=== PATIENT | male | born 1985 | race Caucasian/White ===

== ENCOUNTER 2025-02-27 13:00 | Emergency (ER) | payer MEDICARE, OTHER ==
[~2025-02-27] VITALS: Ht 195.6 cm; Wt 127.3 kg
[~2025-02-27 13:00] MED LIST: DOL10T PO; HYDR-3972 PO
--- NOTE | 2025-02-27 13:06 | Physician Documentation ---
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 Around 1200 today he grabbed his left arm, with his right hand, in order to move it when he noticed the left upper extremity was very warm and swollen. Normally the left upper extremity is much colder than the right. Approximately half an hour later he noticed purple discoloration of the skin of the left hand. His left upper extremity also feels heavy with some slight pain of the extremity. Finally he notes a small sore over the dorsal aspect of the hand below the thumb that appeared today. He denies history of similar symptoms. Medication Reconciliation Allergies: Coded Allergies: No Known Allergies (Unverified , 04/26/12) Scheduled Cephalexin*Monohydrate* (Keflex*), 2 CAP PO BID Hydrocodone Bit/Acetaminophen (Hydrocodon-Acetaminophn 10-325 tablet), 2 TAB PO 5XD, (Reported) Methadone Hcl (Dolophine), 40 MG PO QID, (Reported) Sulfamethoxazole/Trimethoprim (Septra Ds Tab), 1 TAB PO BID Past Medical History Past Medical History: *MUSCULOSKELETAL*, Chronic Pain Past Surgical History: orthopedic surgeries, other Smoking: Quit greater than 1 year Alcohol Use: None Drug Use: none Lives with: Family Lives In: Home Review of Systems All Other Systems at this time: Reviewed and Negative ROS Left hand swelling as well as other positive symptoms as stated above in the HPI, otherwise all systems are reviewed and negative. Physical Exam Physical Exam Vital Signs: RN Vital Signs have been reviewed: Yes Pulse Oximetry Reflects: adequate oxygenation Physical Exam VITALS: Reviewed and as above. GENERAL: Alert, no apparent distress. HEENT: Normocephalic, atraumatic, PERRL, EOMI, dry mucosa RESPIRATORY: Lungs clear, normal breath sounds, no respiratory distress. CHEST: No accessory muscle use, no retractions CV: Regular rate, rhythm, no murmur, No: JVD EXTREMITIES: LUE: Extremity is flaccid with fingers flexed. 1cm area of erythema with excoriation dorsally and proximal to the 1st MCP joint. Diffuse 1+ edema and erythema of the hand extending up to the elbow. Warmth and echymosis of the thumb and proximal 2nd and 3rd finger. Bounding radial pulse. Slightly delayed capillary refill at 3-4s. Other 3 extremities: No deformities, no edema SKIN: See Above. Warm and dry, no rash NEURO: Oriented x4, No motor or sensory deficit PSYCH: Normal mood and affect, no agitation Progress Results/Orders Reviewed/noted all lab results: Yes Results/Orders Orders - WVLLOUIE BECERRIL MD Vl Arterial (02/27/25 13:18) Vl Venous (02/27/25 13:18) Hand,Limited (Ap/Lat) (02/27/25 ) Completed Orders - LOUIE RODRIGES MD Cbc/Diff (02/27/25 13:18) Procalcitonin (02/27/25 13:18) Piperacillin/Tazo 3.375gm/50ml (Zosyn 3. (02/27/25 13:20) BMP (02/27/25 13:18) Vl Arterial (02/27/25 13:18) Vl Venous (02/27/25 13:18) Hand,Limited (Ap/Lat) (02/27/25 ) Vital Signs 02/27/25 02/27/25 02/27/25 02/27/25 13:07 14:08 14:08 15:21 Temp 97.7 98.6 Pulse 77 65 78 Resp 16 16 14 16 B/P (MAP) 145/92 148/94 (112) 128/78 Pulse Ox 98 96 99 O2 Flow Rate 0 Laboratory Tests Test 02/27/25 13:39 White Blood Count 6.2 Red Blood Count 5.19 Hemoglobin 15.4 Hematocrit 44.3 Mean Corpuscular Volume 85.5 Mean Corpuscular Hemoglobin 29.6 Mean Corpuscular Hemoglobin Concent 34.6 Red Cell Distribution Width 13.4 Platelet Count 207 Mean Platelet Volume 7.9 Neutrophils (%) (Auto) 64.4 Lymphocytes (%) (Auto) 27.4 Monocytes (%) (Auto) 6.5 Eosinophils (%) (Auto) 1.1 Basophils (%) (Auto) 0.6 Neutrophils # (Auto) 4.0 Lymphocytes # (Auto) 1.7 Monocytes # (Auto) 0.4 Eosinophils # (Auto) 0.1 Basophils # (Auto) 0.0 CBC Comment Sodium Level 144 Potassium Level 4.1 Chloride Level 108 H Carbon Dioxide Level 28.7 Anion Gap 7 L Blood Urea Nitrogen 12 Creatinine 0.80 Estimated GFR/1.73 m2 > 90 BUN/Creatinine Ratio 15.0 Glucose Level 109 H Calcium Level 9.0 Albumin 3.9 Procalcitonin < 0.05 Chemistry Comments EKG/XRAY/CT/US/VASC/MRI Bone/Soft Tissue X-Ray (Ext.) : Additional Comment EXAM: DI HAND,LIMITED (AP/LAT) CLINICAL INDICATION: swelling TECHNIQUE: DI HAND,LIMITED (AP/LAT) Comparison: None FINDINGS/IMPRESSION: There is no evidence of acute fracture or dislocation. Diffuse osteopenia. Diffuse soft tissue swelling. 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 The alignment is anatomical. There is no radiopaque foreign body. Reviewed by myself. Vascular #1: Vascular Study: upper extremity venous Impression VASC VL VENOUS HISTORY: left hand swelling COMPARISON: None TECHNIQUE: Duplex doppler evaluation of the deep venous system of the lower neck and proximal upper extremity(ies), including color doppler and spectral/pulsed waveform analysis was performed. FINDINGS: Left: - Internal jugular vein: Compressible - Subclavian vein: Visible portion is patent - Axillary vein: Visible portion is patent - Brachial vein: Compressible - Cephalic vein: Compressible - Basilic vein: Compressible - Ulnar vein: Compressible - Radial vein: Compressible - Other: Nothing IMPRESSION: No left upper extremity deep venous thrombosis. Reviewed by myself. Vascular #2: Vascular Study: upper extremity arterial Impression CONCLUSION Technologist Preliminary Impression: Sandee Moise RDMS/RVT Multiphasic throughout left arm, hyperemic flow noted in Left Radial Artery and Left Brachial Distal artery. 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 The vascular studies ordered including arterial as well as venous did not demonstrate any significant pathology he has bounding pulses he was given antibiotics here in the emergency department the patient has been advised to return if he develops significant worsening he will be continued on antibiotics. The patient's pulse oximetry was interpreted as normal and adequate prior hospitalizations have been reviewed and all imaging was reviewed. Departure Time of Disposition: 15:12 Disposition: HOME / SELF CARE / HOMELESS Impression: Primary Impression: Cellulitis Qualified Codes: L03.114 - Cellulitis of left upper limb Additional Impression: Bug bite Qualified Codes: W57.XXXA - Bitten or stung by nonvenomous insect and other nonvenomous arthropods, initial encounter Condition: Stable Discharge Instructions: Cellulitis, Adult, [id number] Additional Instructions: Take full course of both antibiotics as prescribed. Follow up with the regular doctor. Return to the ER for worsening swelling, worsening redness, or any other concerns. Prescriptions Sulfamethoxazole/Trimethoprim (Septra Ds Tab) 800 Mg/160 Mg Tablet 1 TAB PO BID, #14 TAB Prov: LOUIE RODRIGES MD 02/27/25 Cephalexin*Monohydrate* (Keflex*) 500 Mg Capsule 2 CAP PO BID, #28 CAP Prov: LOUIE RODRIGES MD 02/27/25 Education Educated: Patient Educated regarding: diagnosis, treatment, need for follow up Signature Scribe Signature: Scribed for Louie Rodriges MD by Matt Chavez . 02/27/25 13:22 Attestation: The note accurately reflects work and decisions made by me.Louie Rodriges MD 02/28/25 19:13 LOUIE RODRIGES MD Feb 27, 2025 13:06 MATT PABLO Feb 27, 2025 13:27
[2025-02-27 13:47] LABS: MEAN PLATELET VOLUME 7.9 FL (7.4-10.4); RED CELL DISTRIBUTION WIDTH 13.4 % (11.5-14.5)
[2025-02-27] MEDS: piperacillin/tazo 3.375gm/50ml 50 ML IV ONE (13:51)
[2025-02-27 13:58] LABS: CREATININE 0.80 MG/DL (0.60-1.10); TOTAL CARBON DIOXIDE 28.7 MMOL/L (24-32); eCRCL 156 ML/MIN; eGFR > 90 ML/MIN
--- NOTE | 2025-02-27 13:58 | RADIOLOGY REPORT ---
EXAM: DI HAND,LIMITED (AP/LAT) CLINICAL INDICATION: swelling TECHNIQUE: DI HAND,LIMITED (AP/LAT) Comparison: None FINDINGS/IMPRESSION: There is no evidence of acute fracture or dislocation. Diffuse osteopenia. Diffuse soft tissue swelling. 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 The alignment is anatomical. There is no radiopaque foreign body.
[2025-02-27] MEDS ORDERED: SULF1TAB45 PO (15:11)
[2025-02-27] MEDS ORDERED: CEPH-585 PO (15:11)
[2025-02-27 15:21] VITALS: BP 128/78; PULSE 78; RESP 16; TEMP 98.6; O2SAT 99
--- NOTE | 2025-02-27 15:22 | VASCULAR REPORT ---
VASC VL VENOUS HISTORY: left hand swelling COMPARISON: None TECHNIQUE: Duplex doppler evaluation of the deep venous system of the lower neck and proximal upper extremity(ies), including color doppler and spectral/pulsed waveform analysis was performed. FINDINGS: Left: - Internal jugular vein: Compressible - Subclavian vein: Visible portion is patent - Axillary vein: Visible portion is patent - Brachial vein: Compressible - Cephalic vein: Compressible - Basilic vein: Compressible - Ulnar vein: Compressible - Radial vein: Compressible - Other: Nothing IMPRESSION: No left upper extremity deep venous thrombosis.
--- NOTE | 2025-02-27 15:33 | VASCULAR REPORT ---
[facility] Vascular Department [address] [address] [email or web address] Name : DENY GRANT Date : 02/27/2025 FESTING Accession# : [id number] Birthdate : 1985 Sex : M Wheat Inspector : Sandee Moise RDMS/RVNancy Age : [address] : LOUIE BROWN, Preliminary Report The above named patient was referred for a NON-INVASIVE UPPER EXTREMITY ARTERIAL EXAMINATION. The evaluation includes grayscale imaging, color flow Doppler and spectral analysis of the upper extremity arteries. Patient ER Ina[employer]ations Left hand swelling Waveforms Right Left Prox Godfrey Distal Prox Mid Distal Subcl. Subcl. Multi-phasic Multi-phasic Multi-phasic Axillary Axillary Multi-phasic Brachial Brachial Multi-phasic Multi-phasic Multi-phasic Radial Radial Multi-phasic Ulnar Ulnar Multi-phasic Velocities Right Left Prox Godfrey Distal Prox Mid Distal Subcl. Subcl. 142.0cm/s 149.0cm/s 126.0cm/s Axillary Axillary 109.0cm/s Brachial Brachial 104.0cm/s 88.0cm/s 145.0cm/s Radial Radial 189.0cm/s Ulnar Ulnar 44.0cm/s CONCLUSION Technologist Preliminary Impression: Sandee Moise RDMS/BRYANNA Multiphasic throughout left arm, hyperemic flow noted in Left Radial Artery and Left Brachial Distal artery. No sonographic evidence of stenosis or occlusion
== END 2025-02-27 15:23 | disposition home or self-care (01) ==
LOC: ER 13:01
DX: L03.114 Cellulitis of left upper limb (principal); W57.XXXA Bitten or stung by nonvenomous insect and other nonvenomous arthropods, initial encounter; Y93.89 Activity, other specified; Y92.89 Other specified places as the place of occurrence of the external cause; Y99.8 Other external cause status
CPT/HCPCS: 36415; 73120; 80048; 84145; 85025; 93931; 93971; 96365; 99285; J2543

== ENCOUNTER 2025-03-04 17:10 | Inpatient (IN) | payer OTHER ==
[~2025-03-04] VITALS: Ht 195.6 cm; Wt 121.6 kg
[~2025-03-04 17:10] MED LIST changes: +CEPH-585 PO; +SULF1TAB45 PO
[2025-03-04] MEDS: CefTRIAXone/D5W-Rocephin 1gm 50 ML IV ONE (21:25)
--- NOTE | 2025-03-04 21:25 | Physician Documentation ---
History of Present Illness General Chief Complaint: Wound Re-Check Stated Complaint: LEFT HAND INFECTION Time Seen by MD: 21:10 Primary Medical Doctor: DOREEN History of Present Illness Initial Comments 40-year-old male re presents to the emergency department status post bug bite 2- 3 days ago where he was seen in the ED and received a single dose of IV antibiotic and discharged on Bactrim and Keflex. Since being discharged he has noted increasing warmth and erythema with some discoloration to the distal left upper extremity. 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 Continues to have excellent cap refill. There was no obvious abscess or open wound. Patient is on chronic pain medication. Medication Reconciliation Allergies: Coded Allergies: No Known Allergies (Unverified , 04/26/12) Scheduled Buprenorphine HCl/Naloxone HCl (Buprenorphine-Nalox 8-2Mg Film), 0.5 STRIP SL Q6H, (Reported) Scheduled PRN Tramadol HCl (Tramadol HCl), 1 TAB PO Q12H PRN PRN for pain, (Reported) Discontinued Medications Buprenorphine Hcl (Buprenorphine Hcl), 1 TAB SL TID, (Reported) Discontinued Reason: wrong med Cephalexin*Monohydrate* (Keflex*), 2 CAP PO BID Discontinued Reason: patient no longer taking Hydrocodone Bit/Acetaminophen (Hydrocodon-Acetaminophn 10-325 tablet), 2 TAB PO 5XD, (Reported) Discontinued Reason: patient no longer taking Methadone Hcl (Dolophine), 40 MG PO QID, (Reported) Discontinued Reason: patient no longer taking Sulfamethoxazole/Trimethoprim (Septra Ds Tab), 1 TAB PO BID Discontinued Reason: patient no longer taking Past Medical History Past Medical History: *MUSCULOSKELETAL*, Chronic Pain Past Surgical History: orthopedic surgeries, other Smoking: Quit greater than 1 year Alcohol Use: None Drug Use: none Lives with: Family Lives In: Home Review of Systems All Other Systems at this time: Reviewed and Negative Constitutional: Denies: fever, chills, weakness Musc: Reports: swelling Musculoskeletal Mild erythema, increased tenderness and discoloration to the dorsum of the left hand. Excellent cap refill. Physical Exam Physical Exam Vital Signs: Temperature: 97.9, Source: Temporal, Heart Rate: 78, Respiratory Rate: 16, BP: 134/85, Pulse Oximetry: 98, Weight: 121.600 Oxygen Flow Rate: 0 Progress Results/Orders Results/Orders Orders - MARY CLEMENS PAC Hand, Complete (3vw Min) (03/04/25 21:10) Page Hospitalist (03/04/25 22:37) Fill Out Med Reconciliation (03/04/25 22:37) Us Soft Tissue Mass (03/05/25 ) Completed Orders - MARY CLEMENS PAC Cbc/Diff (03/04/25 21:10) CMP (03/04/25 21:10) C-Reactive Protein (03/04/25 21:10) Procalcitonin (03/04/25 21:10) Hand, Complete (3vw Min) (03/04/25 21:10) Ceftriaxone/[id number] 1gm (Rocephin 1 (03/04/25 21:25) Vancomycin*Pharmacy To Dose* (Vancomycin (03/04/25 22:40) Vancomycin 2gm/400ml H20 (Peg) (Vancomyc (03/04/25 23:00) Vancomycin 1gm 200ml H20 (Peg) (Vancomyc (03/05/25 08:00) Hgb A1c (03/04/25 21:21) Vital Signs 03/04/25 03/04/25 03/04/25 17:15 21:00 22:48 Temp 97.9 97.9 Pulse 78 78 Resp 19 16 16 B/P (MAP) 123/103 134/85 (101) Pulse Ox 97 98 O2 Flow Rate 0 0 Laboratory Tests Test 03/04/25 21:21 White Blood Count 6.9 Red Blood Count 5.20 Hemoglobin 15.5 Hematocrit 44.8 Mean Corpuscular Volume 86.1 Mean Corpuscular Hemoglobin 29.9 Mean Corpuscular Hemoglobin Concent 34.7 Red Cell Distribution Width 13.5 Platelet Count 208 Mean Platelet Volume 7.6 Neutrophils (%) (Auto) 59.3 Lymphocytes (%) (Auto) 31.2 Monocytes (%) (Auto) 7.4 Eosinophils (%) (Auto) 1.7 Basophils (%) (Auto) 0.4 Neutrophils # (Auto) 4.1 Lymphocytes # (Auto) 2.1 Monocytes # (Auto) 0.5 Eosinophils # (Auto) 0.1 Basophils # (Auto) 0.0 CBC Comment Sodium Level 143 Potassium Level 4.1 Chloride Level 106 Carbon Dioxide Level 29.0 Anion Gap 8 Blood Urea Nitrogen 18 Creatinine 0.93 Estimated GFR/1.73 m2 90 BUN/Creatinine Ratio 19.4 Glucose Level 109 H Hemoglobin A1c 5.1 Calcium Level 8.9 Total Bilirubin 1.0 Aspartate Amino Transf (AST/SGOT) 11 Alanine Aminotransferase (ALT/SGPT) 26 Alkaline Phosphatase 74 C-Reactive Protein 0.44 Total Protein 8.0 Albumin 4.2 Globulin 3.8 Albumin/Globulin Ratio 1.1 Procalcitonin < 0.05 Chemistry Comments Medical Decision Making Differential Diagnosis Decision time to Admit was upon triage evaluation for failure of out pt ABX with hand cellulitis. Laboratory workup reassuring, x-ray imaging reassuring for no obvious soft tissue or bony involvement. IV vancomycin and ceftriaxone provided in the emergency department. Discussed case with the hospitalist for admission due to patient failing outpatient antibiotic. Additionally ultrasound imaging ordered for the morning to assess for possibility of developing abscess. Clinically do not believe patient needs ultrasound venous or arterial duplex for evaluation of occlusion nor CTA. Patient remains while alert and oriented awaiting transport to the floor normotensive. Departure Disposition: ADMITTED INPATIENT Admitted to Inpatient Unit: to hospitalist, to orthopedist Impression: Primary Impression: Cellulitis of hand Additional Impression: Bug bite Qualified Codes: W57.XXXA - Bitten or stung by nonvenomous insect and other nonvenomous arthropods, initial encounter Referrals: NO PRIMARY CARE PROVIDER (PCP) Signature Scribe Signature: . Attestation: . MARY CLEMENS PAC Mar 04, 2025 21:25
[2025-03-04 21:38] LABS: MEAN PLATELET VOLUME 7.6 FL (7.4-10.4); RED CELL DISTRIBUTION WIDTH 13.5 % (11.5-14.5)
[2025-03-04 21:45] LABS: CREATININE 0.93 MG/DL (0.60-1.10); TOTAL CARBON DIOXIDE 29.0 MMOL/L (24-32); eCRCL 134 ML/MIN; eGFR 90 ML/MIN
--- NOTE | 2025-03-04 22:16 | RADIOLOGY REPORT ---
CLINICAL INDICATION: HAND PAIN TECHNIQUE: HAND 3VWDI HAND, COMPLETE (3VW MIN), left hand Comparison: DI HAND,LIMITED (AP/LAT) on DOS: 02/27/25 FINDINGS/IMPRESSION: : Assessment limited by fixed flexion deformities of the fingers. There is no evidence of acute fracture or dislocation. Soft tissues are unremarkable.
[2025-03-04] MEDS ORDERED: VANCOMYCIN 2GM/400ML H20 (PEG) 400 ML IV ONE (23:00)
[2025-03-04] MEDS ORDERED: TRAM50TA2 PO (23:01)
[2025-03-04] MEDS ORDERED: potassium Cl 40MEQ/1/2NS 520ml 520 ML IV PRN (23:25)
[2025-03-04] MEDS ORDERED: magnesium sulf-water 2g/50mL 50 ML IV PRN (23:25)
[2025-03-04] MEDS ORDERED: magnesium sulf-water 4G/100mL 100 ML IV PRN (23:25)
[2025-03-04] MEDS ORDERED: HYDROcodone/acetaminophen 10/325mg tab PO PRN (23:25)
[2025-03-04] MEDS ORDERED: HYDROcodone/acetaminophen 5mg/325mg tablet PO PRN (23:25)
[2025-03-04] MEDS ORDERED: ondansetron/PF 4mg/2ml inj IV PRN (23:25)
[2025-03-04] MEDS ORDERED: potassium Cl 20 mEq SR tablet PO PRN ×2 (23:25)
[2025-03-04] MEDS ORDERED: magnesium Cl slow-release 64mg tablet PO PRN (23:25)
[2025-03-04] MEDS ORDERED: morphine 4 MG/ML inj SYRINge IV PRN ×2 (23:40)
[2025-03-04] MEDS ORDERED: BUPR2TAB11 SL (23:43)
--- NOTE | 2025-03-04 23:43 | HISTORY AND PHYSICAL-Residence ---
History & Physical Providers to CC Resident Creating Document: DEMETRIUS TAY RES ~ History of Present Illness Primary Medical Doctor: DOREEN Reason for Admit\Complaint: Right upper extremity cellulitis History of Present Illness This 40-year-old male presented to the ER with a chief concern of worsening right upper extremity erythema and swelling. 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 He had a left brachial plexus injury from a snowboarding accident about 20 years back and has decreased sensation in his left upper extremity from mid arm to the tip of the fingers. He also has decreased sensation in his left upper chest. He also can not use his left upper extremity and can only flex his elbow. He came to the ER on concern of noticing the swelling and erythema on left hand and forearm. And arterial ultrasound and venous ultrasound were done which did not show any significant abnormal findings. He was discharged on Keflex 500 mg p.o. b.i.d. for two weeks and Bactrim 800/160 mg p.o. b.i.d. for a week. He was using it for the last 3-4 days but symptoms did not resolve and so came back to the ER. There is bluish discoloration of his proximal interphalangeal joints that made him come to the ER. He usually does not feel and low-dose sensation in his left upper limb DVT but has a episodic tingling sensation and so has a spinal cord stimulator in his back. And also uses Suboxone. Denies any other complaints like fever with chills, nausea or vomiting, chest pain, shortness of breaths, dysuria or any other concerns. Mentioned that he was diagnosed with prediabetes about 2-3 years back. Unsure about recent HbA1c Allergies: Coded Allergies: No Known Allergies (Unverified , 04/26/12) Home Medications Home Medications Active Reported Tramadol HCl 50 Mg Tablet 1 Tab PO Q12H PRN PRN 30 Days Dolophine (Methadone HCl) 10 Mg Tablet 40 Mg PO QID Past Medical History Past Medical History Left brachial plexus injury, left upper extremity atrophy, chronic pain syndrome Past Surgical History Surgical History Comment Spine stimulator in back for left upper extremity Past Social History Social History Comment Quit smoking tobacco about 10 years back and smoked a pack per week for two years. Denies drinking alcohol or abusing any other recreational drugs Smoking: Quit greater than 1 year Alcohol Use: None Drug Use: None Lives with: Family Lives In: Home ROS ROS Constitutional: No fever, chills, dizziness, weakness, weight gain or loss Eyes: No pain, erythema, discharge, blurring of vision ENT: No sore throat, epistaxis, tinnitus Cardiovascular: No chest pain, chest pressure, chest discomfort, palpitations, syncope, lower extremity edema, paroxysmal nocturnal dyspnea Respiratory: No shortness of breath, cough, hemoptysis Gastrointestinal: Normal appetite. No nausea, vomiting, diarrhea, constipation, hematemesis, abdominal pain, bloating, melena or fresh blood Genitourinary: No frequency, urgency, nocturia, hematuria or dysuria Musculoskeletal: No arthralgias or myalgias Integumentary: Erythema of forearm and hand with mild swelling. hair, nails. No bruising, abrasions Neurologic: Weakness of left upper extremity which is chronic from brachial plexus injury. Episodic tingling sensation of left upper extremity. No headache, neck pain Psychiatric: No delusions, depression, loss of interest in normal activity or change in sleep pattern, hallucinations, suicidal ideations Endocrine: No fatigue, weakness, polydipsia, polyuria, change in appetite, heat or cold intolerance, sweating, dry skin Hematological: No bleeding, petechiae, bruising Allergies: No asthma or urticaria Exam Vitals: Vital Signs Date Time Temp Pulse Resp B/P (MAP) Pulse Ox O2 Delivery O2 Flow Rate FiO2 03/04/25 22:48 16 03/04/25 21:00 97.9 78 98 0 General: Alert and oriented x4 HEENT: Normocephalic and atraumatic. Pupils equal round reactive to light and accommodation. Extraocular movements intact. Oral and nasal mucosa moist Neck: Trachea is in midline. No masses or JVD Chest: Bilateral normal breath sounds. No crackles, rhonchi or wheezes Cardiovascular: Regular rate and rhythm. S1-S2 normal. No rubs or murmurs Abdomen: Soft, nontender nondistended. Bowel sounds present Extremities: Erythema and minimal swelling of left upper extremity from elbow to the tip of fingers. Left 2 to five fingers flexed at proximal interphalangeal joint. Bluish discoloration of distal phalanx mainly the 1st one. Marked atrophy of left upper extremity muscles. 2+ pulse. No cyanosis or clubbing or pedal edema Central Nervous System: Has left brachial plexus injury. Can only flex left forearm and can not raise it above the shoulder. Decreased sensation all over the left lower extremity- mainly from elbow to fingers. Decreased sensation in left upper chest. Right upper extremity, bilateral lower extremities-motor power 5/5 with no sensory abnormalities. No cerebellar signs. CN II to XII grossly intact Musculoskeletal: No spinal or paraspinal tenderness Skin: As mentioned above Diagnostic Data Last Recorded Lab Results: 03/04/25212003/04/252120 Advance Care Planning Advanced Care plannin - 30 Minutes Additional Plan Left upper extremity cellulitis Failed outpatient oral antibiotics Started Zosyn 3.375 g IV q.8h and vancomycin Outpatient oral antibiotics did not cover Pseudomonas, Neisseria and anaerobes Left upper extremity CT showed diffuse soft tissue swelling throughout the hand. No fracture or erosive changes Left hand x-ray showed no fractures Blood cultures ordered WBC within normal limits. Procalcitonin negative Pending UA and urine tox Continue normal saline at 100 cc/hour HbA1c 5.1 Left upper extremity Vascular ultrasound on 02/27/2025 showed no DVT Arterial ultrasound on 02/27/2025 showed no evidence of stenosis or occlusion Chronic pain syndrome Episodic left upper extremity tingling sensation Has a spinal cord stimulator Continued home medications Suboxone Avoid any opioids DVT prophylaxis: Lovenox 40 mg subcutaneous daily Diet: Regular diet patient seen and evaluated using HIPPA compliant AV device Agree with plan as discussed with the resident Rachel Vidales MD Date of Service: Mar 05, 2025 Billing Provider: RACHEL VIDALES MD, [facility] Mar 04, 2025 23:43 RACHEL VIDALES MD Mar 05, 2025 02:46
[2025-03-04] MEDS: VANCOMYCIN 2GM/400ML H20 (PEG) 400 ML IV ONE (23:57)
[2025-03-05] VITALS (7 sets, daily range): BP systolic 114–146; BP diastolic 52–78; PULSE 69–82; RESP 16–20; TEMP 97.6–98.9; O2SAT 96–99
[2025-03-05] MEDS: normal saline 1000ml 1,000 ML IV SCH (00:03)
[2025-03-05] MEDS: VANCOMYCIN 2GM/400ML H20 (PEG) 400 ML IV ONE (00:04)
--- NOTE | 2025-03-05 00:35 | RADIOLOGY REPORT ---
INDICATION: MID ARM TO FINGER TIPS pain. COMPARISON: DI HAND, COMPLETE (3VW MIN) on DOS: 03/04/25, DI HAND,LIMITED (AP/LAT) on DOS: 02/27/25 TECHNIQUE: CT of the right hand was performed without contrast. Volume transverse images were obtained and reconstructed in multiple planes using bone and soft tissue algorithms. Radiation Dose Information: CT Dose: CTDI volume is 28.91 mGy. Dose-length product is 1908.98 mGy*cm FINDINGS: The alignment is normal. The joint spaces are normal. There is no fracture, dislocation or aggressive osseous lesion. There is no joint effusion. Diffuse soft tissue swelling. IMPRESSION: 1. Diffuse soft tissue swelling throughout the hand. No fracture is seen. No erosive changes. All CT scans at this medical facility are performed using dose modulation techniques as appropriate to a performed exam including the following: Automated exposure control was utilized; Adjustment of the MA And/or KV according to patient size; And use of iterative reconstruction technique.
[2025-03-05] MEDS ORDERED: non-formulary drug (Buprenorphine Hcl 1 TAB) SL SCH ×2 (00:45→08:00)
[2025-03-05] MEDS: buprenorphine/naloxone 8MG-2MG SUBlingual film SL ONE (03:15)
[2025-03-05] MEDS ORDERED: BUPR1FIL20 SL (03:32)
[2025-03-05 04:46] LABS: LEUKOCYTE ESTERASE ,URINE NEGATIVE (Neg); NITRITES, URINE NEGATIVE (Neg); OCCULT BLOOD,URINE NEGATIVE (Neg); UA COLLECTION TYPE VOIDED
[2025-03-05 04:56] LABS: URINE AMPHETAMINE SCREEN NEGATIVE (Neg); URINE BARBITUATE SCREEN NEGATIVE (Neg); URINE BENZODIAZEPINES SCREEN NEGATIVE (Neg); URINE CANNABINOID SCREEN NEGATIVE (Neg); URINE COCAINE SCREEN NEGATIVE (Neg); URINE METHADONE SCREEN NEGATIVE (Neg); URINE OPIATE SCREEN NEGATIVE (Neg); URINE PHENCYCLIDINE SCREEN NEGATIVE (Neg)
[2025-03-05] MEDS ORDERED: VANCOMYCIN 1GM 200ML H20 (PEG) 200 ML IV SCH (08:00)
[2025-03-05] MEDS: K and/or MAG REPLACEMENT MC SCH (08:00)
[2025-03-05] MEDS ORDERED: vancomycin/NS 1 GM ADD-VANTAGE 250 ML IV SCH (08:00)
[2025-03-05] MEDS: piperacillin/tazo 3.375gm/50ml 50 ML IV SCH (08:27)
[2025-03-05 10:31] LABS: MEAN PLATELET VOLUME 7.9 FL (7.4-10.4); RED CELL DISTRIBUTION WIDTH 13.1 % (11.5-14.5)
[2025-03-05 10:42] LABS: APTT 26 SECONDS (22-32); INR 1.1 INR
[2025-03-05 11:01] LABS: CREATININE 0.76 MG/DL (0.60-1.10); TOTAL CARBON DIOXIDE 27.4 MMOL/L (24-32); eCRCL 164 ML/MIN; eGFR > 90 ML/MIN
[2025-03-05 11:27] LABS: CHOL/HDL RATIO 5.1 (0.00-4.99); LDL CHOLESTEROL 97 MG/DL (50-100); PHOSPHORUS 3.4 MG/DL (2.3-4.5)
--- NOTE | 2025-03-05 11:58 | PROGRESS NOTE ---
Daily Progress Note Providers to CC Left upper extremity pain, edema ~ Central Line/PICC still needed: No Larsen-Non Protocol Larsen Indications Met/Not Met: F/C Indications Not Met Antibiotic Timeout Antibiotic Ordered?: Yes MRSA Education MRSA Education Provided to pt: Yes Subjective As above Objective Vital Signs Date Time Temp Pulse Resp B/P (MAP) Pulse Ox O2 Delivery O2 Flow Rate FiO2 03/05/25 06:00 98.1 82 18 146/77 (100) 98 03/05/25 04:00 Room Air 0.0 Vital signs, stable ,afebrile. Pulse Oximetry reflects adequate oxygenation. BMI is General: well developed, well nourished. Awake , alert, and oriented x4, resting comfortably in the bed, in no acute distress . Skin: Warm, dry, no pallor, no rash or petechiae. HEENT: Atraumatic, normocephalic, EOMI, anicteric sclera B; pink conjunctiva; PERRLA, normal oropharynx, moist oral and nasal mucosa. Tympanic membrane , nose , throat clear. Neck: Trachea midline. Supple, full range of motion, no JVD, bruit , hepatojugular reflex , lymphadenopathy or masses, or other lesions Cardiac: Regular rhythm, regular rate no murmurs, rubs, or gallops. Normal S1 and S2, no S3 noticed. PMI is normal. Respiratory: Equal breath sounds bilaterally, no tachypnea; lungs clear to auscultation bilaterally, no wheezing ,rub or rales, or crackles. Chest wall is symmetric and without deformity. No signs of trauma. Chest wall is nontender. No signs of respiratory distress. Resonance is normal upon percussion bilaterally. Gastrointestinal: Abdomen symmetric, non-distended, soft, non-tender, normal bowel sounds x4 quadrant, normoactive, no hepatosplenomegaly , no masses , no bruit, no flank pain bilaterally. No voluntary guarding, rebound, or rigidity. No tenderness to percussion. No pulsatile masses. Equal femoral pulses. No Foster's sign or McBurney point tenderness. Back; no CVA tenderness bilaterally, no deformities. Neck and back are without deformity as well. No tenderness noted on palpation of the spinous processes. Spinous processes are midline. Cervical, thoracic, and lumbar paraspinal muscles are not tender and are without spasm. : normal external genitalia, without lesions, swelling, masses or tenderness. Musculoskeletal: Extremities, normal range of motion, non-tender, muscle strength 5/5 x 4. Negative Homans signs bilaterally on lower extremity. Distal pulses full symmetrical, no clubbing, cyanosis , edema. Locally, left hand rest plus one edema tender to palpation mild Neurological: Speech is clear, alert, and oriented x 4. No motor or sensory deficit, deep tendon reflexes normal, cerebellar intact. Cranial nerves II-XII intact. Psych: Alert and or appropriate, normal affect. Vascular: Good distal pulses, which are equal x4; capillary refill less than 2 seconds. Lymphatic, no lymphadenopathy. Result Diagram: 03/05/25 0956 03/05/25 0956 Coagulation Studies Laboratory Tests Test 03/05/25 09:56 Prothrombin Time 10.9 SECONDS (9.0-12.0) INR International Normalized Ratio 1.1 INR Activated Partial Thromboplast Time 26 SECONDS (22-32) Coagulation Comments Problem\Assessment\Plan Assessment/Plan Left upper extremity cellulitis Failed outpatient oral antibiotics Started Zosyn 3.375 g IV q.8h and vancomycin Outpatient oral antibiotics did not cover Pseudomonas, Neisseria and anaerobes Left upper extremity CT showed diffuse soft tissue swelling throughout the hand. No fracture or erosive changes Left hand x-ray showed no fractures Blood cultures ordered WBC within normal limits. Procalcitonin negative Pending UA and urine tox Continue normal saline at 100 cc/hour HbA1c 5.1 Left upper extremity Vascular ultrasound on 02/27/2025 showed no DVT Arterial ultrasound on 02/27/2025 showed no evidence of stenosis or occlusion Chronic pain syndrome Episodic left upper extremity tingling sensation Has a spinal cord stimulator Continued home medications Suboxone Avoid any opioids DVT prophylaxis: Lovenox 40 mg subcutaneous daily Diet: Regular diet Sepsis Screening Reassessment Date: Mar 05, 2025 Date of Service: Mar 05, 2025 Billing Provider: JENNIFER MENENDEZ MD Common Visit Codes: [id number] INP/OBS CARE(HIGH) JENNIFER MENENDEZ MD Mar 05, 2025 11:58
[2025-03-05] MEDS: vancomycin/NS 1 GM ADD-VANTAGE 250 ML IV SCH (12:49)
[2025-03-05] MEDS ORDERED: BUPR2TAB11 SL (19:20)
--- NOTE | 2025-03-05 19:36 | PROGRESS NOTE ---
Daily Progress Note Providers to CC Feels better today minimal pain in the left upper extremity ~ Central Line/PICC still needed: No Larsen-Non Protocol Larsen Indications Met/Not Met: F/C Indications Not Met Antibiotic Timeout Antibiotic Ordered?: Yes MRSA Education MRSA Education Provided to pt: Yes Subjective As above Objective Vital Signs Date Time Temp Pulse Resp B/P (MAP) Pulse Ox O2 Delivery O2 Flow Rate FiO2 03/05/25 08:36 18 98 Room Air 0.0 03/05/25 06:00 98.1 82 146/77 (100) Vital signs, stable ,afebrile. Pulse Oximetry reflects adequate oxygenation. General: well developed, well nourished. Awake , alert, and oriented x4, resting comfortably in the bed, in no acute distress . Skin: Warm, dry, no pallor, no rash or petechiae. HEENT: Atraumatic, normocephalic, EOMI, anicteric sclera B; pink conjunctiva; PERRLA, normal oropharynx, moist oral and nasal mucosa. Tympanic membrane , nose , throat clear. Neck: Trachea midline. Supple, full range of motion, no JVD, bruit , hepatojugular reflex , lymphadenopathy or masses, or other lesions Cardiac: Regular rhythm, regular rate no murmurs, rubs, or gallops. Normal S1 and S2, no S3 noticed. PMI is normal. Respiratory: Equal breath sounds bilaterally, no tachypnea; lungs clear to auscultation bilaterally, no wheezing ,rub or rales, or crackles. Chest wall is symmetric and without deformity. No signs of trauma. Chest wall is nontender. No signs of respiratory distress. Resonance is normal upon percussion bilaterally. Gastrointestinal: Abdomen symmetric, non-distended, soft, non-tender, normal bowel sounds x4 quadrant, normoactive, no hepatosplenomegaly , no masses , no bruit, no flank pain bilaterally. No voluntary guarding, rebound, or rigidity. No tenderness to percussion. No pulsatile masses. Equal femoral pulses. No Foster's sign or McBurney point tenderness. Back; no CVA tenderness bilaterally, no deformities. Neck and back are without deformity as well. No tenderness noted on palpation of the spinous processes. Spinous processes are midline. Cervical, thoracic, and lumbar paraspinal muscles are not tender and are without spasm. : normal external genitalia, without lesions, swelling, masses or tenderness. Musculoskeletal: Extremities, normal range of motion, non-tender, muscle strength 5/5 x 4. Negative Homans signs bilaterally on lower extremity. Distal pulses full symmetrical, no clubbing, cyanosis , edema. 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 No motor or sensory deficit, deep tendon reflexes normal, cerebellar intact. Cranial nerves II-XII intact. Psych: Alert and or appropriate, normal affect. Vascular: Good distal pulses, which are equal x4; capillary refill less than 2 seconds. Lymphatic, no lymphadenopathy. Result Diagram: 03/05/25 0956 03/05/25 0956 Coagulation Studies Laboratory Tests Test 03/05/25 09:56 Prothrombin Time 10.9 SECONDS (9.0-12.0) INR International Normalized Ratio 1.1 INR Activated Partial Thromboplast Time 26 SECONDS (22-32) Coagulation Comments Problem\Assessment\Plan Plan Left upper extremity cellulitis Failed outpatient oral antibiotics Started Zosyn 3.375 g IV q.8h and vancomycin Outpatient oral antibiotics did not cover Pseudomonas, Neisseria and anaerobes Left upper extremity CT showed diffuse soft tissue swelling throughout the hand. No fracture or erosive changes Left hand x-ray showed no fractures Blood cultures ordered WBC within normal limits. Procalcitonin negative Pending UA and urine tox Continue normal saline at 100 cc/hour HbA1c 5.1 Left upper extremity Vascular ultrasound on 02/27/2025 showed no DVT Arterial ultrasound on 02/27/2025 showed no evidence of stenosis or occlusion Chronic pain syndrome Episodic left upper extremity tingling sensation Has a spinal cord stimulator Continued home medications Suboxone Avoid any opioids DVT prophylaxis: Lovenox 40 mg subcutaneous daily Diet: Regular diet Date of Service: Mar 05, 2025 Billing Provider: JENNIFER MENENDEZ MD Common Visit Codes: [id number] INP/OBS CARE(HIGH) JENNIFER MENENDEZ MD Mar 05, 2025 19:36
[2025-03-05] MEDS: enoxaparin 40mg/0.4ml syringe SQ SCH (20:00)
[2025-03-05] MEDS ORDERED: buprenorphine/naloxone 8MG-2MG SUBlingual film SL SCH (20:00)
[2025-03-05] MEDS: BUPRENORPHINE HCL 2 MG SL SCH (22:17)
[2025-03-06] MEDS: VANCOMYCIN LEVEL IV ONE (05:00)
[2025-03-06 05:04] LABS: MEAN PLATELET VOLUME 7.8 FL (7.4-10.4); RED CELL DISTRIBUTION WIDTH 13.3 % (11.5-14.5)
[2025-03-06 05:10] LABS: APTT 23 SECONDS (22-32); INR 1.1 INR
[2025-03-06 05:13] LABS: CREATININE 0.74 MG/DL (0.60-1.10); PHOSPHORUS 3.6 MG/DL (2.3-4.5); TOTAL CARBON DIOXIDE 29.6 MMOL/L (24-32); eCRCL 169 ML/MIN; eGFR > 90 ML/MIN
[2025-03-06 06:00] VITALS: BP 143/90; PULSE 66; RESP 14; TEMP 97.4; O2SAT 100
[2025-03-06] MEDS ORDERED: BUPRENORPHINE HCL 2 MG SL SCH (08:00)
[2025-03-06 08:04] VITALS: RESP 16
[2025-03-06 10:11] VITALS: BP 110/65; PULSE 79; RESP 13; TEMP 98.2; O2SAT 99
[2025-03-06] MEDS ORDERED: VANCOmycin 1250MG/NS 250ml Bag 250 ML IV SCH (13:00)
[2025-03-06] MEDS ORDERED: CEPH500C2 PO (13:02)
--- NOTE | 2025-03-06 19:31 | DISCHARGE SUMMARY ---
Discharge Summary Providers to Feels better today asking to be discharged home ~ Discharge Summary Assessment Left upper extremity cellulitis Left brachial plexus injury, left upper extremity atrophy, chronic pain syndrome Left upper extremity paresthesia stimulator for pain control, status Admission Diagnosis: right upper extremity cellulitis Admission Diagnosis Comment: Left upper extremity cellulitis Left brachial plexus injury, left upper extremity atrophy, chronic pain syndrome Left upper extremity paresthesia stimulator for pain control, status Hospital Course DATE OF ADMISSION: March 04 2025 DATE OF DISCHARGE:, March 06, 2025 Discharge Diagnosis\Comment: Left upper extremity cellulitis Left brachial plexus injury, left upper extremity atrophy, chronic pain syndrome Left upper extremity paresthesia stimulator for pain control, status Operations\Procedures: Non Consultants: Non Complications: Non Condition on DC: Stable Discharge Summary: This 40-year-old male presented to the ER with a chief concern of worsening right upper extremity erythema and swelling. 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 He had a left brachial plexus injury from a snowboarding accident about 20 years back and has decreased sensation in his left upper extremity from mid arm to the tip of the fingers. He also has decreased sensation in his left upper chest. He also can not use his left upper extremity and can only flex his elbow. He came to the ER on concern of noticing the swelling and erythema on left hand and forearm. And arterial ultrasound and venous ultrasound were done which did not show any significant abnormal findings. He was discharged on Keflex 500 mg p.o. b.i.d. for two weeks and Bactrim 800/160 mg p.o. b.i.d. for a week. He was using it for the last 3-4 days but symptoms did not resolve and so came back to the ER. There is bluish discoloration of his proximal interphalangeal joints that made him come to the ER. He usually does not feel and low-dose sensation in his left upper limb DVT but has a episodic tingling sensation and so has a spinal cord stimulator in his back. And also uses Suboxone. Denies any other complaints like fever with chills, nausea or vomiting, chest pain, shortness of breaths, dysuria or any other concerns. Mentioned that he was diagnosed with prediabetes about 2-3 years back. Unsure about recent HbA1c. After admission patient was extensively evaluated treated, condition significantly improved, asking to be discharged home today, medication reconciled follow-up PCP in the morning, he will be discharged in stable condition, today on physical exam Vital signs, stable ,afebrile. Pulse Oximetry reflects adequate oxygenation. BMI is General: well developed, well nourished. Awake , alert, and oriented x4, resting comfortably in the bed, in no acute distress . Skin: Warm, dry, no pallor, no rash or petechiae. HEENT: Atraumatic, normocephalic, EOMI, anicteric sclera B; pink conjunctiva; PERRLA, normal oropharynx, moist oral and nasal mucosa. Tympanic membrane , nose , throat clear. Neck: Trachea midline. Supple, full range of motion, no JVD, bruit , hepatojugular reflex , lymphadenopathy or masses, or other lesions Cardiac: Regular rhythm, regular rate no murmurs, rubs, or gallops. Normal S1 and S2, no S3 noticed. PMI is normal. Respiratory: Equal breath sounds bilaterally, no tachypnea; lungs clear to auscultation bilaterally, no wheezing ,rub or rales, or crackles. Chest wall is symmetric and without deformity. No signs of trauma. Chest wall is nontender. No signs of respiratory distress. Resonance is normal upon percussion bilaterally. Gastrointestinal: Abdomen symmetric, non-distended, soft, non-tender, normal bowel sounds x4 quadrant, normoactive, no hepatosplenomegaly , no masses , no bruit, no flank pain bilaterally. No voluntary guarding, rebound, or rigidity. No tenderness to percussion. No pulsatile masses. Equal femoral pulses. No Foster's sign or McBurney point tenderness. Back; no CVA tenderness bilaterally, no deformities. Neck and back are without deformity as well. No tenderness noted on palpation of the spinous processes. Spinous processes are midline. Cervical, thoracic, and lumbar paraspinal muscles are not tender and are without spasm. : normal external genitalia, without lesions, swelling, masses or tenderness. Musculoskeletal: Extremities, normal range of motion, non-tender, muscle strength 5/5 x 4. Negative Homans signs bilaterally on lower extremity. Distal pulses full symmetrical, no clubbing, cyanosis , edema. Left upper extremity minimal edema mild tender to palpation no redness associated with chronic atrophy Neurological: Speech is clear, alert, and oriented x 4. No motor or sensory deficit, deep tendon reflexes normal, cerebellar intact. Cranial nerves II-XII intact. Psych: Alert and or appropriate, normal affect. Vascular: Good distal pulses, which are equal x4; capillary refill less than 2 seconds. Lymphatic, no lymphadenopathy. *Problems/Diagnosis: (1) Cellulitis Status: Acute Total Time Spent on D/C: > 30 Minutes Date of Service: Mar 06, 2025 Billing Provider: JENNIFER MENENDEZ MD Common Visit Codes: [id number] DISCH DAY >30min JENNIFER MENENDEZ MD Mar 06, 2025 19:31
[2025-03-07] MEDS ORDERED: VANCOMYCIN LEVEL IV ONE (12:30)
== END 2025-03-06 14:08 | disposition home or self-care (01) | DRG 603 ==
LOC: ER 17:12 → ED HOLD 23:31 → SUR 3N 03-05 02:00
PROVIDERS: ADMIT Internal Medicine; ATTEND Family Medicine
DX: L03.114 Cellulitis of left upper limb (principal); L03.113 Cellulitis of right upper limb; R73.03 Prediabetes; G89.4 Chronic pain syndrome; S14.3XXA Injury of brachial plexus, initial encounter; X58.XXXA Exposure to other specified factors, initial encounter; Y93.89 Activity, other specified; Y92.89 Other specified places as the place of occurrence of the external cause; Y99.8 Other external cause status; Z87.891 Personal history of nicotine dependence
CPT/HCPCS: 36415; 73130; 73200; 80053; 80061; 80202; 80305; 81003; 83036; 83605; 83735; 84100; 84145; 85025; 85610; 85730; 86140; 87040; 87077; 87081; 87186; 99285; A6258; G0378; J0696; J2543; J3373; J3375; J7030

== ENCOUNTER 2025-03-31 18:32 | Emergency (ER) | payer OTHER ==
[~2025-03-31] VITALS: Ht 195.6 cm; Wt 78.0 kg
[~2025-03-31 18:32] MED LIST changes: +BUPR2TAB11 SL; -CEPH-585 PO; -DOL10T PO; -HYDR-3972 PO; -SULF1TAB45 PO
[2025-03-31] MEDS ORDERED: DOXY100C43 PO (19:18)
--- NOTE | 2025-03-31 19:18 | Physician Documentation ---
History of Present Illness ~ Chief Complaint: Abscess Stated Complaint: POSSIBLE INFECTION Time Seen by MD: 19:17 Primary Medical Doctor: DOREEN SKY 40-year-old male who presents to the Emergency department for evaluation of left axilla for suspected abscess versus lymphadenopathy. Patient has a recently placed on antibiotics due to a distal extremity infection. Patient has known complex left brachial plexus injury hats required multiple surgeries. He has paralysis of the left upper extremity that is chronic in nature. Reports that the infection has resolved yet noticed a lump deep in his left axilla. There was no redness there is no fluctuance nor the written fever. No prior history of the same. Tetanus Within 5 Years: Yes Medication Reconciliation Allergies: Coded Allergies: No Known Allergies (Unverified , 04/26/12) Scheduled Buprenorphine Hcl (Buprenorphine Hcl), 1 TAB SL 5X/DAY, (Reported) Doxycycline Monohydrate (Doxycycline Monohydrate), 100 MG PO BID Past Medical History Past Medical History: *MUSCULOSKELETAL*, Chronic Pain Past Surgical History: orthopedic surgeries, other Alcohol Use: None Drug Use: none Lives with: Family Lives In: Home Review of Systems All Other Systems at this time: Reviewed and Negative Constitutional: Denies: fever Integumentary: Reports: other (Left upper extremity or brachial plexus injury) Physical Exam Vital Signs: RN Vital Signs have been reviewed: Yes, Temperature: 98.2, Source: Temporal, Heart Rate: 86, Respiratory Rate: 14, BP: 141/83, Pulse Oximetry: 98, Weight: 78.000 Oxygen Flow Rate: 0 General Appearance: alert, WD/WN, mild distress EENT: normal ENT inspection Neck: normal inspection Respiratory: no respiratory distress Chest: no accessory muscle use Skin: other (Numerous well-healed scars to left anterior chest, left axilla and trapezius scapula region) Skin Left upper extremity with chronic hyperpigmentation Lymphatic: other (Deep left axilla tenderness in a 1 cm firm node without saucedo rrounding erythema, fluctuance or additional shotty nodes) Psychiatric: normal mood/affect Progress Results/Orders Results/Orders Vital Signs 03/31/25 03/31/25 18:43 19:30 Temp 98.2 98.6 Pulse 86 85 Resp 14 18 B/P (MAP) 141/83 140/80 Pulse Ox 98 99 O2 Flow Rate 0 Medical Decision Making Additional information obtaine: family Findings Examination history consistent with lymphadenopathy likely reactionary due to recent left upper extremity infection. No clinical suspicion on examination of abscess or cellulitis or HS. No indication for incision and drainage or ultrasound imaging at this time. We will go ahead and repeat the course of doxycycline and recommend close follow up for re-evaluation and consideration of ultrasound imaging if no resolution. The 1 cm firm nodule is deep in the left axilla consistent with lymphadenopathy. There are no associated shotty nodes. Differential Dx:Considerations: Include: Abscess, Cellulitis, Hidrademitis suppurativa, Lymphangitis Departure Disposition: HOME / SELF CARE / HOMELESS Impression: Primary Impression: Axillary lymphadenopathy Condition: Improved Discharge Instructions: Lymphadenopathy Additional Instructions: PLEASE BEGIN ADDITIONAL DOSE OF ANTIBIOTICS AND FOLLOW UP WITH THE PRIMARY CARE PHYSICIAN FOR REPEAT EVALUATION AND CONSIDERATION OF ULTRASOUND IMAGING IF NOT BETTER. THANK YOU FOR VISITING [facility]. Referrals: NO PRIMARY CARE PROVIDER (PCP) Prescriptions Doxycycline Monohydrate (Doxycycline Monohydrate) 100 Mg Capsule 100 MG PO BID, #14 CAP may sub doxycycline hyclate or azithromycin z-pack as prescribed Prov: MARY CLEMENS 03/31/25 Education Educated: Patient Educated regarding: diagnosis, treatment, prognosis Signature Scribe Signature: . Attestation: . MARY CLEMENS Mar 31, 2025 19:18
[2025-03-31 19:30] VITALS: BP 140/80; PULSE 85; RESP 18; TEMP 98.6; O2SAT 99
== END 2025-03-31 19:32 | disposition home or self-care (01) ==
LOC: ER 18:33
DX: R59.0 Localized enlarged lymph nodes (principal); G89.29 Other chronic pain; Z79.899 Other long term (current) drug therapy; Z98.890 Other specified postprocedural states
CPT/HCPCS: 99283